=== PATIENT | male | born 2000 | race Caucasian/White ===

== ENCOUNTER 2022-12-16 10:32 | Emergency (ER) | payer MEDICAID ==
[~2022-12-16] VITALS: Ht 167.6 cm; Wt 82.0 kg
[2022-12-16 10:34] VITALS: BP 136/83
[2022-12-16] MEDS ORDERED: TETANUS, DIPHTHERIA, PERTUSSIS VAC/PF 0.5ML (>10YR OLD) IM ONE (11:15)
[2022-12-16] MEDS ORDERED: BACITRACIN ZINC OINT UDPKT TOP ONE (11:15)
[2022-12-16] MEDS ORDERED: LIDOCAINE HCL/PF 1% 10 MG/ML 5ML VIAL INFIL ONE (11:15)
[2022-12-16] MEDS ORDERED: CEPH500C2 MT (12:20)
== END 2022-12-16 12:45 | disposition home or self-care (01) ==
LOC: ER 10:32
DX: S41.102A Unspecified open wound of left upper arm, initial encounter (principal); X58.XXXA Exposure to other specified factors, initial encounter; Y93.89 Activity, other specified; Y92.89 Other specified places as the place of occurrence of the external cause; Y99.8 Other external cause status
CPT/HCPCS: 20520; 73060; 90471; 90715; 99284; J3490; Z7610